=== PATIENT | female | born 1985 | race American Indian/Alaskan Native ===

== ENCOUNTER 2017-08-27 23:14 | Emergency (ER) | payer MEDICAID ==
[2017-08-27 23:15] VITALS: BMI 27.5
--- NOTE | 2017-08-28 00:25 | ED PDOC ---
Arrival/HPI <MyaJose D - Last Filed: 08/28/17 19:44> - General Historian: Patient - History of Present Illness Time/Duration: Other (see hpi) Context: Home <Guerita Porter - Last Filed: 08/29/17 21:59> - General Chief Complaint: Abnormal Skin Integrity Time Seen by Provider: 08/28/17 00:10 - History of Present Illness Narrative History of Present Illness (Text): 08/28/17 00:25 Patient just arrived in ED room. This 31 yo female, 2 months gravid, , denies pmh, presents to this ED c/o pelvic cramping, and generalized itching 7 days. Patient stated symptoms worsen today. Patient also noted urinary frequency, and urgency x 2 days. Patient denies vaginal bleeding, sob, cp, n/v, or dizziness. Patient stated she had a positive test last week at home. Patient stated her last menstruation was 2 months ago. (Guerita Porter) Past Medical History - Provider Review Nursing Documentation Reviewed: Yes - Infectious Disease Hx of Infectious Diseases: None - Tetanus Immunization Tetanus Immunization: Unknown - Past Medical History Past Medical History: No Previous - Cardiac Hx Cardiac Disorders: Yes Hx Heart Murmur: Yes - Pulmonary Hx Respiratory Disorders: Yes Hx Asthma: Yes - Neurological Hx Neurological Disorder: No - HEENT Hx HEENT Disorder: No - Renal Hx Renal Disorder: No - Endocrine/Metabolic Hx Endocrine Disorders: No - Hematological/Oncological Hx Blood Disorders: No - Integumentary Hx Dermatological Disorder: No - Musculoskeletal/Rheumatological Hx Musculoskeletal Disorders: No - Gastrointestinal Hx Gastrointestinal Disorders: No - Genitourinary/Gynecological Hx Genitourinary Disorders: No - Psychiatric Hx Psychophysiologic Disorder: Yes Hx Anxiety: Yes Hx Depression: Yes Hx Emotional Abuse: No Hx Physical Abuse: No Hx Substance Use: No - Past Surgical History Past Surgical History: No Previous - Suicidal Assessment Feels Threatened In Home Enviroment: No <Guerita Porter - Last Filed: 08/29/17 21:59> Family/Social History - Physician Review Nursing Documentation Reviewed: Yes Family/Social History: Other (noncontributory) Smoking Status: Light Smoker < 10 Cigarettes Daily Hx Alcohol Use: No Hx Substance Use: No Hx Substance Use Treatment: No <Guerita Porter - Last Filed: 08/29/17 21:59> Allergies/Home Meds <MyaJose D - Last Filed: 08/28/17 19:44> <Guerita Porter P - Last Filed: 08/29/17 21:59> Allergies/Adverse Reactions: Allergies No Known Allergies Allergy (Verified 06/16/15 13:50) Review of Systems - Review of Systems Constitutional: Normal. absent: Fatigue, Weight Change, Fevers Eyes: Normal ENT: Normal Respiratory: Normal Cardiovascular: Normal Gastrointestinal: Normal Genitourinary Female: Other (see hpi) Musculoskeletal: Normal Skin: Normal Neurological: Normal Endocrine: Normal Hemo/Lymphatic: Normal Psychiatric: Normal <PorterGuerita gonsalez P - Last Filed: 08/29/17 21:59> Physical Exam Temperature: Afebrile Blood Pressure: Normal Pulse: Regular Respiratory Rate: Normal Appearance: Positive for: Well-Appearing, Non-Toxic, Comfortable Pain Distress: None Mental Status: Positive for: Alert and Oriented X 3 - Systems Exam Head: Present: Atraumatic, Normocephalic Pupils: Present: PERRL Extroacular Muscles: Present: EOMI Conjunctiva: Present: Normal Mouth: Present: Moist Mucous Membranes Neck: Present: Normal Range of Motion Respiratory/Chest: Present: Clear to Auscultation, Good Air Exchange. No: Respiratory Distress, Accessory Muscle Use Cardiovascular: Present: Regular Rate and Rhythm, Normal S1, S2. No: Murmurs Abdomen: No: Tenderness, Distention, Peritoneal Signs, Rebound, Guarding Genitourinary/Pelvic Exam: Present: Other (Patient declined pelvic exam) Back: Present: Normal Inspection Upper Extremity: Present: Normal Inspection. No: Cyanosis, Edema Lower Extremity: Present: Normal Inspection. No: Edema Neurological: Present: GCS=15, CN II-XII Intact, Speech Normal Skin: Present: Warm, Dry, Normal Color. No: Rashes Psychiatric: Present: Alert, Oriented x 3, Normal Insight, Normal Concentration <Rebecca Porterim P - Last Filed: 08/29/17 21:59> Vital Signs Temp Pulse Resp BP Pulse Ox 08/28/17 03:15 98.2 F 71 18 134/83 100 08/28/17 02:01 71 18 134/83 100 08/28/17 01:21 98.4 F 772 H 18 144/102 H 100 Medical Decision Making <Jose D Roque - Last Filed: 08/28/17 19:44> Re-evaluation Time: 03:01 Reassessment Condition: Re-examined, Improved - Lab Interpretations I have reviewed the lab results: Yes Interpretation: No clinic. lab abnormalty <Guerita Porter - Last Filed: 08/29/17 21:59> ED Course and Treatment: 08/28/17 03:00 Re-evaluation. Patient feels better. Discussed results and plan with patient who expresses understanding. All questions answered and there is agreement with the plan to discharge home with instructions. Patient stable for discharge. Return if symptoms persist or worsen. I reviewed test with patient. I told patient that test was negative. UA is normal. Patient requested medication for itching. I ordered Benadryl. Patient was recommended to see her PMD tomorrow. To see RADAR SYSTEMS ENGINEER in 1-2 days. She understood plan. (Guerita Porter) - Lab Interpretations Lab Results: 08/28/17 01:35 08/28/17 01:35 Lab Results 08/28/17 02:15: Blood Type Confirm O POSITIVE 08/28/17 01:35: Blood Type O POSITIVE, Antibody Screen Negative, BBK History Checked No verified bt 08/28/17 01:35: Beta HCG, Quant < 2.39 08/28/17 01:35: Sodium 144, Potassium 3.3 L, Chloride 104, Carbon Dioxide 27, Anion Gap 16, BUN 6 L, Creatinine 0.7, Est GFR ( Amer) > 60, Est GFR (Non -Af Amer) > 60, Random Glucose 92, Calcium 9.4, Total Bilirubin 0.4, AST 26, ALT 38, Alkaline Phosphatase 96, Total Protein 7.3, Albumin 4.3, Globulin 3.0, Albumin/Globulin Ratio 1.4 08/28/17 01:35: WBC 7.4 D, RBC 4.12, Hgb 11.7 L, Hct 36.0, MCV 87.4, MCH 28.4, MCHC 32.5, RDW 14.6 H, Plt Count 240, MPV 10.4, Gran % 49.6 L, Lymph % (Auto) 43.5 H, Evans % (Auto) 4.9, Eos % (Auto) 1.9, Baso % (Auto) 0.1, Gran # 3.68, Lymph # (Auto) 3.2, Evans # (Auto) 0.4, Eos # (Auto) 0.1, Baso # (Auto) 0.01 08/28/17 01:25: Urine Color Yellow, Urine Appearance Clear, Urine pH 6.0, Ur Specific Sully >= 1.030, Urine Protein Negative, Urine Glucose (UA) Negative, Urine Ketones Negative, Urine Blood Negative, Urine Nitrate Negative, Urine Bilirubin Negative, Urine Urobilinogen 0.2, Ur Leukocyte Esterase Negative 08/28/17 01:25: Urine HCG, Qual Negative - RAD Interpretation Narrative RAD Interpretations (Text): FINDINGS: Gestation: No intrauterine gestational sac. Uterus/cervix: Endometrium: 1.9 cm in thickness. Closed cervix. Ovaries: Normal ovaries. No adnexal masses. Free fluid: No significant free fluid. IMPRESSION: 1. No intrauterine gestation. DDX: Early IUP, missed , ectopic . (Guerita Porter) Radiology Orders: 08/28/17 00:50 OB TRANSVAGINAL [US] Stat - Medication Orders Current Medication Orders: Discontinued Medications Diphenhydramine HCl (Benadryl) 50 mg IVP STAT STA Stop: 08/28/17 03:02 Last Admin: 08/28/17 03:17 Dose: Not Given Non-Admin Reason: Patient Refused IVP Administration Document 08/28/17 03:17 JC (Rec: 08/28/17 03:17 JC [id number]) Charges for Administration # of IVP Administrations 0 Sodium Chloride (Sodium Chloride 0.9%) 500 mls @ 1,000 mls/hr IV .Q30M STA Stop: 08/28/17 01:19 Last Admin: 08/28/17 03:18 Dose: 1,000 mls/hr eMAR Start Stop Document 08/28/17 03:18 JC (Rec: 08/28/17 03:19 JC [id number]) Intravenous Solution Start Date 08/28/17 Start Time 03:18 End Date 08/28/17 End time 03:00 Total Infusion Time -18 - PA / DECK SCALER / Resident Statement / has reviewed & agrees with the documentation as recorded. / has examined the patient and agrees with the treatment plan. <Jose D Roque - Last Filed: 08/28/17 19:44> Disposition/Present on Arrival <Mya,Robert - Last Filed: 08/28/17 19:44> - Present on Arrival Any Indicators Present on Arrival: No History of DVT/PE: No History of Uncontrolled Diabetes: No Urinary Catheter: No History of Decub. Ulcer: No History Surgical Site Infection Following: None - Disposition Have Diagnosis and Disposition been Completed?: Yes Disposition Time: 03:02 Patient Plan: Discharge <Guerita Porter - Last Filed: 08/29/17 21:59> - Disposition Diagnosis: Pelvic cramping, Itch of skin Disposition: HOME/ ROUTINE Condition: IMPROVED Discharge Instructions (ExitCare): Seasonal Allergies (DC) Print Language: SPANISH Additional Instructions: Call private doctor for follow up visit in 1-2 days. Take medication as instructed. call private RADAR SYSTEMS ENGINEER doctor for revaluation. Return to emergency if symptoms worsen. Make sure to see your doctor to review blood test, urine test and result of ultrasound in 1-2 days.. Prescriptions: Famotidine [Pepcid] 40 mg PO DAILY #10 tablet Hydroxyzine Pamoate [Vistaril] 25 mg PO Q8H PRN #20 capsule PRN Reason: Itching / Pruritus Referrals: Niranjan Mcgrath MD [Family Provider] - Follow up with primary Forms: [facility] (Sudanese), WORK NOTE
[2017-08-28 01:22] VITALS: RESP 18; O2SAT 100
[2017-08-28 01:54] LABS: BASO # 0.01 K/mm3 (0.0-2.0); BASO % 0.1 % (0.0-3.0); EOS # 0.1 (0.0-0.7); EOS % 1.9 % (1.5-5.0); GRAN # 3.68 (1.4-6.5); GRAN % 49.6 % (50.0-68.0); HEMOGLOBIN 11.7 g/dL (12.0-16.0); LYMPH # 3.2 (1.2-3.4); LYMPH % 43.5 % (22.0-35.0); MEAN CELL VOLUME 87.4 fl (80.0-105.0); MEAN CORPUSCULAR HEMOGLOBIN 28.4 pg (25.0-35.0); MEAN CORPUSCULAR HGB CONC 32.5 g/dl (31.0-37.0); MEAN PLATELET VOLUME 10.4 fl (7.0-11.0); MONO # 0.4 (0.1-0.6); MONO % 4.9 % (1.0-6.0); RBC 4.12 10^6/uL (3.5-6.1); RED CELL DISTRIBUTION WIDTH 14.6 % (11.5-14.5); WHITE BLOOD COUNT 7.4 10^3/ul (4.5-11.0)
[2017-08-28] MEDS: Sodium Chloride 0.9% 500 ML IV STA ×2 (01:57→03:18)
[2017-08-28 02:03] VITALS: BP 134/83; PULSE 71
[2017-08-28 02:08] LABS: ALB/GLOB RATIO 1.4 (1.1-1.8); ALBUMIN 4.3 g/dL (3.0-4.8); ALT/SGPT 38 U/L (7-56); AST/SGOT 26 U/L (14-36); BLOOD UREA NITROGEN 6 mg/dL (7-21); CALCIUM 9.4 mg/dL (8.4-10.5); GFR AFRICAN-AMERICAN > 60; GFR NON-AFRICAN AMERICAN > 60
[2017-08-28 02:41] LABS: URINE BILIRUBIN NEGATIVE (NEGATIVE); URINE BLOOD NEGATIVE (NEGATIVE); URINE GLUCOSE (UA) NEGATIVE (NEGATIVE); URINE LEUKOCYTE ESTERASE NEGATIVE Leu/uL (NEGATIVE); URINE PROTEIN NEGATIVE mg/dL (<30 mg/dL); URINE UROBILINOGEN 0.2 E.U./dL (<1 E.U./dL)
[2017-08-28 02:42] LABS: URINE APPEARANCE CLEAR (CLEAR); URINE COLOR YELLOW (YELLOW)
[2017-08-28] MEDS ORDERED: DiphenhydrAMINE 50 mg/ml Inj IVP STA (03:01)
[2017-08-28 03:17] VITALS: TEMP 98.2
--- NOTE | 2017-08-28 03:58 | US ---
EXAM: US First Trimester, Transabdominal US , Transvaginal CLINICAL HISTORY: 31 years old, female; Pain; complicated by abdominal or pelvic pain; Lower; First trimester; Gestational age or lmp: 07/01/2017; ; Additional info: Pelvic cramping TECHNIQUE: Real-time transabdominal and transvaginal obstetrical ultrasound of the maternal pelvis and a first trimester with image documentation. Transvaginal imaging was used for better evaluation of the fetus and adnexa. COMPARISON: No relevant prior studies available. FINDINGS: Gestation: No intrauterine gestational sac. Uterus/cervix: Endometrium: 1.9 cm in thickness. Closed cervix. Ovaries: Normal ovaries. No adnexal masses. Free fluid: No significant free fluid. IMPRESSION: 1. No intrauterine gestation. DDX: Early IUP, missed , ectopic .
== END 2017-08-28 03:15 | disposition home or self-care (01) ==
LOC: ED 23:14
DX: O26.891 Other specified pregnancy related conditions, first trimester (principal); R10.2 Pelvic and perineal pain; L29.9 Pruritus, unspecified
CPT/HCPCS: 76817; 80053; 81003; 84702; 84703; 85025; 86850; 86900; 87086; 99283; J7040